=== PATIENT | female | born 1965 | race Caucasian/White ===

== ENCOUNTER 2021-03-16 05:59 | Day surgery (SDC) | payer BC ==
[2021-03-16] MEDS ORDERED: LIDOCAINE HCL 2% (20ML MULTI-DOSE VIAL) ONE (07:14)
[2021-03-16] MEDS ORDERED: PROPOFOL 20 ML ONE ×3 (07:26)
[2021-03-16] MEDS ORDERED: SUCCINYLCHOLINE CHLORIDE 200 MG/10 ML SYRINGE ONE (07:27)
[2021-03-16] MEDS ORDERED: MIDAZOLAM HCL 2 MG/2 ML SINGLE DOSE VIAL ONE (07:27)
[2021-03-16] MEDS ORDERED: DEXAMETHASONE SOD PHOSPHATE 4 MG/1 ML VIAL ONE (07:43)
[2021-03-16] MEDS ORDERED: ceFAZolin SODIUM 1 GM VIAL ONE (07:43)
[2021-03-16] MEDS ORDERED: ONDANSETRON 4 MG/2 ML VIAL ONE (07:43)
[2021-03-16] MEDS ORDERED: KETOROLAC TROMETHAMINE 30 MG/1 ML VIAL ONE (07:43)
[2021-03-16] MEDS ORDERED: LIDOCAINE HCL 2% (50ML VIAL) INF ONE (08:01)
[2021-03-16] MEDS ORDERED: PROMETHAZINE HCL 25 MG/1 ML VIAL IVPUSH PRN (08:42)
[2021-03-16] MEDS ORDERED: ONDANSETRON 4 MG/2 ML VIAL IVPUSH PRN (08:42)
[2021-03-16] MEDS ORDERED: oxyCODONE HCL 5 MG TABLET PO PRN ×2 (08:42)
== END 2021-03-16 09:20 | disposition home or self-care (01) ==
LOC: FASU 05:59
PROVIDERS: ATTEND Orthopaedic Surgery
PROC: 0LN70ZZ Release Right Hand Tendon, Open Approach (ICD-10-PCS; principal; 2021-03-16 08:00)
DX: M65.311 Trigger thumb, right thumb (principal); M65.9 Synovitis and tenosynovitis, unspecified
CPT/HCPCS: 81025